=== PATIENT | female | born 1985 | race Caucasian/White ===

== ENCOUNTER 2016-12-29 01:31 | Outpatient (CLI) | payer BC ==
[2016-12-29 03:23] LABS: BUN/CREATININE RATIO 8 (0-10)
== END 2016-12-29 03:38 | disposition home or self-care (01) ==
LOC: GENOP 01:31
PROVIDERS: Obstetrics & Gynecology
DX: O99.89 Other specified diseases and conditions complicating pregnancy, childbirth and the puerperium (principal); R10.9 Unspecified abdominal pain; Z3A.24 24 weeks gestation of pregnancy
CPT/HCPCS: 36415; 80053; G0463; J7120